=== PATIENT | male | born 1955 | race Caucasian/White ===

== ENCOUNTER 2019-04-06 10:53 | Day surgery (SDC) | payer OTHER, SELFPAY ==
[2019-03-09 15:06] VITALS: BMI 35.2
[2019-04-06] VITALS (7 sets, daily range): BP systolic 100–144; BP diastolic 55–79; PULSE 66–79; RESP 16; TEMP 36.3–37; O2SAT 92–99; BMI 33.5
--- NOTE | 2019-04-06 | LES_PTH ---
PATIENT: LUKE ROBERTS [place] [facility] [place][id number] AGE/SX: 63/M ROOM: RE04/06/[address]: Dr. Preston Bishop MD : 1955 BED: DIS: 04/06/2019 SPEC #: [id number] RECD: 04/06/19 13:19 STATUS: LUPIS CEDRIC #: [id number] MICHELLE: 04/06/19 00:[address]: Preston Bishop DEPT: SURGICAL PATHOLOGY RECD BY: Jesica Phillips ENTERED: 04/06/19 14:05 SP TYPE: Lesion OTHR DR: Dr. Alexis Lim MD Tissues: A - Skin of eyelid, NOS B - Skin of eyelid, NOS Procedures: Frozen Section (charge) Surgery Specimen Level IV HEADER OPERATION: Excision lesion with severe dysplasia right medial canthal PRE-OP DIAGNOSIS: 14 mm erythematous lesion with severe dysplasia right medial canthal area TISSUE SUBMITTED: A - Lesion right medial canthal area, suture at 12 o'clock for frozen, B - Lesion severe dysplasia, suture at 12 o'clock FROZEN SECTION DIAGNOSIS A. Lesion, right medial canthal area: Dysplastic squamous epithelium involving 12 o'clock and 3 o'clock margins. FA:kathryn 04/06/19 MICROSCOPIC DIAGNOSIS A. Lesion, right medial canthal area, excision: Squamous cell carcinoma in situ, involving the frozen section 12 o'clock and 3 o'clock margins,and involving the final 6 o'clock excisional margin. B. Lesion, severe dysplasia, excision: Actinic keratosis. CE:kathryn 04/08/19 COMMENT This case was reviewed and diagnosis discussed with Dr. Bishop on 04/20/19 at 9:[address] Sun. MICROSCOPIC DESCRIPTION Slides are reviewed. GROSS DESCRIPTION A - Received fresh for frozen section evaluation labeled with the patient's name is a specimen designated lesion right medial canthal area. The specimen consists of pink-kumar, round skin fragment measuring 1.2 x 1.1 x 0.1 cm. The specimen is oriented by a suture on the 12 o'clock margin. The 12?o'clock margin is inked blue, 3 o'clock margin - green, 6 o'clock margin - yellow and 9 o'clock margin - red. The specimen is serially sectioned and totally submitted for section evaluation in one cassette. / FA:kathryn 04/06/19 B - Received in fixative is one container labeled with the patient's name and designated lesion severe dysplasia, suture at 12 o'clock. The specimen consists of a pinkish-kumar skin fragment measuring 1.2 x 0.5 x 0.2 cm. The 12 o'clock area is inked blue. The specimen is serially sectioned and totally submitted in one cassette. / FA:kathryn 04/07/19 TC:0 CPT: 56670 x2, 92883
--- NOTE | 2019-04-06 09:16 | PCM.HP.BLA ---
History and Physical Date of Admission: 04/06/19 HISTORY OF PRESENT ILLNESS 63 year old man presents for evaluation for TBSE. He has concerns about an erythematous lesion on his right medial canthal area that has been increasing in size over the last several months and has developed irregular borders. He denies any visual problems. He denies fever. He denies any trauma to the area. He denies any drainage or bleeding. Complains of occasional burning. He denies any epiphora. It gets crusty occasionally. He presents at this time for further evaluation and treatment. PAST MEDICAL HISTORY High cholesterol High triglycerides History of pneumonia Vision problems PAST SURGICAL HISTORY None. ALLERGIES No Known Allergies MEDICATIONS aspirin 8 fenofibrate multivitamin tablet niacin FAMILY HISTORY Father - Diabetes, Heart disease Mother - Hypertension SOCIAL HISTORY Smoking Status: Never smoker alcohol intake: never substance use type: does not use REVIEW OF SYSTEMS General - Denies fever, fatigue, and weight loss. Eyes - Denies cataracts and glaucoma. ENT - Denies nasal congestion and sore throat. Endocrine - Denies excessive thirst and urination. Skin - Denies skin cancer. Has enlarging lesion right medial canthal area. Musculoskeletal - Denies joint pain, joint stiffness, weakness of muscles and joints, back pain, and arthritis. Neuro - Denies headaches. Cardiovascular - Denies chest pain, fatigue, and shortness of breath with exertion. Psych - Denies anxiety and depression. Respiratory - Denies chronic cough and shortness of breath. Gastrointestinal - Denies nausea, vomiting, diarrhea, and constipation. Hematologic - Denies abnormal bruising and bleeding. Genitourinary - Denies hematuria and urinary frequency. PHYSICAL EXAMINATION General - Alert and Oriented. HEENT - PERRL. EOMI. Throat is clear. On the right medial canthal area is an erythematous lesion that measures 14 mm. It is flat. It has irregular borders. Does not involve the medial canthal angle. No ulceration. No crusting noted today. Lesion has some burning with palpation. No epiphora noted. No other suspicious lesions noted. Neck - Supple and nontender. No cervical adenopathy. No suspicious lesions noted. Lungs - Clear to auscultation. Heart - Regular rate and rhythm. Abdomen - Soft and nondistended. Extremities - FROM. No axillary adenopathy. Radial pulses are palpable. No suspicious lesions noted. Neuro - CN II-XII grossly intact. Psych - Normal mood and affect. ASSESSMENT 14 mm erythematous lesion right medial canthal area. PLAN This erythematous lesion is suspicious for an actinic lesion or an early carcinoma. Recommend excision of this lesion and send it to Pathology for analysis to rule out carcinoma. If carcinoma is present, then further excision will be done with skin grafting. If actinic lesion is present, will also proceed with skin grafting since I don't want to use Aldara that close to the eye. Depending on the Pathology if the carcinoma is aggressive and a wider excision is necessary, will obtain an evaluation with Ophthalmology with specialization in oculoplastic reconstruction since the lacrimal system may be involved. Sometimes a forehead flap is necessary with underlying mucosa for reconstruction. Surgery can be done on an outpatient basis under general anesthesia. Patient was informed of the risks and complications of the procedure including alternatives to surgery. These were discussed with the patient personally. Patient voices understanding and wishes to proceed. Some of the risks and complications were included in a form from the [employer] [place] [employer]. Patient voices understanding that depending on the extent and complexity of the defect after establishing a diagnosis, further evaluation by Ophthalmology with specialization in oculoplastic reconstruction may be necessary with surgery at a tertiary center.
[2019-04-06] MEDS: Mupirocin Ointment 22gm Tube 1 APPLIC (14:30)
--- NOTE | 2019-04-06 14:39 | OP.PCM_ITS ---
Report of Operation Date of Procedure: 04/06/19 Pre-Operative Diagnosis: 14 mm erythematous lesion right medial canthal area. Post-Operative Diagnosis: 14 mm erythematous lesion with severe dysplasia right medial canthal area. Surgery/Procedure Performed:: Excision 14 mm erythematous lesion with severe dysplasia right medial canthal area with FTSG reconstruction from right neck (5 cm2). Description of Surgical Findings:: 63 year old man presents for evaluation for TBSE. He has concerns about an erythematous lesion on his right medial canthal area that has been increasing in size over the last several months and has developed irregular borders. He denies any visual problems. He denies fever. He denies any trauma to the area. He denies any drainage or bleeding. Complains of occasional burning. He denies any epiphora. It gets crusty occasionally. Patient was informed of the risks and complications of the procedure including alternatives to surgery. These were discussed with the patient personally. Patient voices understanding and wishes to proceed. Some of the risks and complications were included in a form from the [place] [employer]. Frozen section right medial canthal area - severe dysplasia at 12 oclock and 3 oclock margin and no carcinoma seen. Size of skin graft right medial canthal area - 2.5 x 2 cm. sales agent financial report service: Martha Montesinos. Type of Anesthesia:: General Specimen's removed: 1. Lesion right medial canthal area to Pathology as a frozen section. 2. Lesion with severe dysplasia right medial canthal area to Pathology. Drains: None. Estimated Blood Loss (mL): 10 ml. Description of Procedure: Patient was taken to OR in supine position and was placed under general anesthesia. The face and neck areas were prepped and draped in the usual fashion. SCD's were placed for DVT prophylaxis. Perioperative antibiotics were given intravenously. Using xylocaine with epinephrine, the lesion right medial canthal area was infiltrated. After waiting 5 minutes for the anesthetic to take effect, the lesion was excised into the subcutaneous tissue with a couple mm margin in all directions. A suture was marked at 12 oclock position for pathology orientation. The lesion was sent to Pathology as a frozen section for analysis to rule out carcinoma. Frozen section showed a lesion with severe dysplasia extending to 12 oclock to 3 oclock position and no carcinoma was seen. So additional tissue was taken at the 12 oclock to 3 oclock position as well as deeper subcutaneous tissue that also involved some additional tissue at 6 oclock position. This was done because it was easy to excise additional tissue away from the medial canthal crease as the extent of the lesion laterally was very close to the medial canthus. A suture was marked at 12 oclock position for pathology orientation. The lesion was sent to Pathology for analysis to rule out carcinoma. Hemostasis was obtained with electrocautery. The size of the defect right medial canthal area to be skin grafted was 2.5 x 2 cm or 5 cm2. I then infiltrated an area of skin on the right neck in an elliptical fashion. After waiting 5 minutes for the anesthetic to take effect, I excised an ellipse of skin right neck into the subcutaneous tissue. The subcutaneous tissue was removed from the undersurface of the dermis thus fashioning a full thickness skin graft. The skin graft was placed in saline. For the donor incision, hemostasis was obtained with electrocautery. The donor incision right neck was then closed in a layered fashion with 5-0 Monocryl interrupted sutures for the deep dermis and subcutaneous tissue. The skin was approximated with 5-0 Prolene simple interrupted sutures. Antibiotic ointment was applied to the suture line followed by a gauze and an Op-site dressing. I then placed the full thickness skin graft on the right medial canthal wound and secure the skin graft to the skin edges with 5-0 Chromic simple interrupted sutures. 5-0 Chromic sutures were also used for central quilting stabilization. Antibiotic ointment was applied to the skin graft followed by Xerform gauze and cotton ball soaked in saline and secured with 5-0 Nylon tie over stent suture dressing. Patient tolerated the procedure well and was sent to PACU in satisfactory condition. Patient will be sent home on antibiotics and pain medication. He will keep his head elevated during the initial postop period. Patient will followup later this week for a wound check and takedown of the skin graft dressing. The donor incision right neck will have its sutures removed in a week. Will discuss the pathology report when it becomes available. If margins are still positive on the final pathology report, then can consider radiation therapy versus more surgical excision. This additional excision would involve the medial canthal area and medial eyelids with probable involvement of the lacrimal system. So evaluation by an Oculoplastic Surgeon would be done for this complex upper medial eyelid and lower medial eyelid reconstruction and possible surgery on the lacrimal system. Grafts/Implants Used: None. - Complications None. - Admit VTE Documentation VTE Present on Admission: No VTE Mechan Device Prophylaxis: SCD's VTE Pharm Prophylaxis ordered?: No Code Visit Surgery Charges CPT - 93590 ICD-10 - L98.8, D49.2 46868 L98.8, D49.2
--- NOTE | 2019-04-06 14:46 | DCINST_ITS ---
You will use the following diet at home:: No restrictions Discharge Activity: May not drive while taking narcotic pain medications., May Shower - after the medial canthal dressing is removed in the office., - - keep head elevated. no heavy lifting. May shower in (days): 3 - after the skin graft dressing is removed from right medial canthal area. May resume sexual activity in: No Restrictions Ice area for (Minutes): 5 - as needed for facial and periorbital swelling. Weight Bearing Status: Weight bearing as tolerated Lifting Restrictions: 10 lbs. Keep extremity elevated above heart level: - - elevate haed. Call your doctor if your incision/area has: Continuous Slow Oozing, Sudden Increased Bleeding, Increased Pain/ Swelling, Increased Redness, Foul Smelling Discharge, Swelling at the incision site Call your doctor if you observe: Fever of 101 or Higher, Coldness, Increased Pain, Shortness of breath, Chest pain, Calf discomfort, Uncontrolled pain Suture Line Care: - - apply antibiotic ointment to suture line right neck after surgical dressing removed in two days. Change Dressing in (Days):: 2 - right neck dressing. Remove Dressing in (days):: 3 - right medial canthal dressing only. Cleanse incision/area with: - - may get incisions and skin graft wet in the shower after the skin graft dressing is removed in the office. Allergies/Adverse Reactions: Allergies No Known Allergies Allergy (Unverified 04/06/19 11:09) Medications to take at Discharge aspirin 81 mg tablet,delayed release 81 mg PO DAILY 02/23/19 fenofibrate nanocrystallized 145 mg tablet 145 mg PO DINNER 02/23/19 multivitamin tablet 1 tab PO DAILY 02/23/19 niacin 400 mg (inositol niacinate 500 mg) capsule 525 mg PO LUNCH cap 02/23/19 Fish Oil/Dha/Epa [Fish Oil 1,200 mg Fish Oil] 1 ea PO LUNCH 03/30/19 Garlic 1 ea PO LUNCH 03/30/19 Primary Care Physician: Alexis Lim [Primary Care Provider] - Test Results: Test results from this visit will be discussed in further detail at your follow- up appointment, if applicable. Please Follow Up With: Preston Bishop MD When: thursday04/08/19. call [phone] for appt time. Proposed Discharge Date: 04/06/19
== END 2019-04-06 16:34 | disposition home or self-care (01) ==
LOC: SDC 10:54 → AC 10:56
PROVIDERS: Family Provider Family Medicine; PCP Family Medicine; Referring Provider Surgery; Visit Provider Surgery
PROC: (CPT 11443; principal; 2019-04-06 12:15)
DX: D04.39 Carcinoma in situ of skin of other parts of face (principal); L57.0 Actinic keratosis; E78.2 Mixed hyperlipidemia; Z79.82 Long term (current) use of aspirin
CPT/HCPCS: 11443; 15260; 88305; 88331; J7120; J2405